=== PATIENT | male | born 1960 | race Caucasian/White ===

== ENCOUNTER 2016-12-09 12:51 | Emergency (ER) | payer OTHER ==
[~2016-12-09] VITALS: Ht 193 cm; Wt 150.0 kg
[~2016-12-09 12:51] MED LIST: AMOX875T PO; ASPI1TAB69 PO; BUPR100T4 PO; DEXT10CA6 PO; MORP1TAB24 PO; SERT-129 PO; TRAZ100T4 PO
[2016-12-09 12:53] VITALS: BP 169/102; PULSE 101; RESP 26; TEMP 98.7; O2SAT 96
[2016-12-09] MEDS ORDERED: IBUP200T2 PO (16:54)
[2016-12-09] MEDS ORDERED: BACL10TA PO (16:54)
[2016-12-09] MEDS ORDERED: ACET-898 (16:54)
[2016-12-09] MEDS ORDERED: AMIT10TA6 PO (16:54)
[2016-12-09 16:55] VITALS: BP 162/101; PULSE 82; RESP 20; TEMP 98.1; O2SAT 97
[2016-12-09] MEDS ORDERED: METF500T PO (17:00)
--- NOTE | 2016-12-09 17:12 | PD ---
HPI Chief Complaint: Respiratory Symptoms Time Seen by Provider: 17:02 Travel History International Travel<30 days: No Contact w/Intl Traveler<30days: No Traveled to known affect area: No History of Present Illness HPI 56 years old male complains of coughing wheezing shortness of breath. Patient states that the symptoms started a month ago and it was since then. Patient denies any fever chills. Patient states that he has intermittent burning pain substernally with breathing and movement. Patient denies any pain radiation. Patient denies palpitation nausea or diaphoresis. Patient has history of reactive airway disease in the past. Patient was given inhaler in the past. Patient states that he quit smoking years ago. Patient has history of diabetes , anxiety, depression, CAD status post AK in the past. Patient denies any history hypertension or hyperlipidemia. Patient has been taking metformin for his diabetes. PFSH Past Medical History ADHD: Yes Anxiety: Yes Depression: Yes Cardiovascular Problems: Yes Diabetes: Yes Patient Takes Glucophage: Yes Hypertension: Yes Musculoskeletal: Yes (heart) Myocardial Infarction: Yes Tetanus Vaccination: Unknown Influenza Vaccination: No Past Surgical History Other Surgery: Yes (lumbar discectomy) Social History Alcohol Use: No Tobacco Use: No Substance Use: No Allergies-Medications (Allergen,Severity, Reaction): Coded Allergies: No Known Allergies (Unverified , 12/09/16) Reported Meds & Prescriptions Reported Meds & Active Scripts Active Reported Metformin (Metformin HCl) 500 Mg Tab 500 Mg PO BIDPC Amitriptyline (Amitriptyline HCl) 10 Mg Tab 10 Mg PO HS Baclofen 10 Mg Tab 10 Mg PO BID Acetaminophen Extra Strength (Acetaminophen) 500 Mg Tablet Ibuprofen 200 Mg Tab 200 Mg PO Q12HR PRN Sertraline (Sertraline HCl) 100 Mg Tab 100 Mg PO DAILY Dextroamphetamine (Dextroamphetamine Sulfate) 10 Mg Cap 10 Mg PO Q6HR Bupropion HCl 100 Mg Tab 100 Mg PO DAILY Review of Systems General / Constitutional: No: Fever Eyes: No: Visual changes HENT: No: Headaches Cardiovascular: Positive: Chest Pain or Discomfort Respiratory: Positive: Cough, Shortness of Breath, Wheezing Gastrointestinal: No: Abdominal Pain Genitourinary: No: Dysuria Musculoskeletal: No: Pain Skin: No Rash Neurologic: No: Weakness Psychiatric: No: Depression Endocrine: No: Polydipsia Hematologic/Lymphatic: No: Easy Bruising Physical Exam Narrative GENERAL: Well-nourished, well-developed patient. SKIN: Focused skin assessment warm/dry. HEAD: Normocephalic. EYES: No scleral icterus. No injection or drainage. NECK: Supple, trachea midline. No JVD or lymphadenopathy. CARDIOVASCULAR: Regular rate and rhythm without murmurs, gallops, or rubs. RESPIRATORY: Breath sounds equal bilaterally. No accessory muscle use. Patient has mild titrate wheezes bilaterally. No rhonchi. GASTROINTESTINAL: Abdomen soft, non-tender, nondistended. MUSCULOSKELETAL: No cyanosis, or edema. BACK: Nontender without obvious deformity. No CVA tenderness. Neurologic exam normal. Data Data Last Documented VS Vital Signs Date Time Temp Pulse Resp B/P (MAP) Pulse Ox O2 Delivery O2 Flow Rate FiO2 12/09/16 16:55 82 20 97 Room Air 12/09/16 16:55 98.1 162/101 (121) Orders Orders Complete Blood Count With Diff (12/09/16 17:07) Basic Metabolic Panel (Bmp) (12/09/16 17:07) B-Type Natriuretic Peptide (12/09/16 17:07) Troponin I (12/09/16 17:07) Iv Access Insert/Monitor (12/09/16 17:07) Electrocardiogram (12/09/16 17:07) Ecg Monitoring (12/09/16 17:07) Oximetry (12/09/16 17:07) Chest, Single Ap (12/09/16 17:07) Sodium Chloride 0.9% Flush (Ns Flush) (12/09/16 17:15) Methylprednisolone So Succ Inj (Solumedr (12/09/16 17:15) Albuterol-Ipratropium Neb (Duoneb Neb) (12/09/16 17:15) Ed Discharge Order (12/09/16 18:57) Labs Laboratory Tests Test 12/09/16 17:25 White Blood Count 6.4 TH/MM3 Red Blood Count 4.91 MIL/MM3 Hemoglobin 13.3 GM/DL Hematocrit 39.8 % Mean Corpuscular Volume 81.0 FL Mean Corpuscular Hemoglobin 27.1 PG Mean Corpuscular Hemoglobin Concent 33.5 % Red Cell Distribution Width 14.5 % Platelet Count 149 TH/MM3 Mean Platelet Volume 10.6 FL Neutrophils (%) (Auto) 58.9 % Lymphocytes (%) (Auto) 31.9 % Monocytes (%) (Auto) 5.7 % Eosinophils (%) (Auto) 2.5 % Basophils (%) (Auto) 1.0 % Neutrophils # (Auto) 3.8 TH/MM3 Lymphocytes # (Auto) 2.0 TH/MM3 Monocytes # (Auto) 0.4 TH/MM3 Eosinophils # (Auto) 0.2 TH/MM3 Basophils # (Auto) 0.1 TH/MM3 CBC Comment DIFF FINAL Differential Comment Blood Urea Nitrogen 13 MG/DL Creatinine 0.93 MG/DL Random Glucose 106 MG/DL Calcium Level 8.7 MG/DL Sodium Level 141 MEQ/L Potassium Level 3.8 MEQ/L Chloride Level 108 MEQ/L Carbon Dioxide Level 26.6 MEQ/L Anion Gap 6 MEQ/L Estimat Glomerular Filtration Rate 84 ML/MIN Troponin I LESS THAN 0.02 NG/ML B-Type Natriuretic Peptide 202 PG/ML MDM Medical Decision Making Medical Screen Exam Complete: Yes Emergency Medical Condition: Yes Interpretation(s) Last Impressions Chest X-Ray 12/09/16 1706 Signed Impressions: Service Date/Time: Friday, December 09, 2016 17:33 - CONCLUSION: No acute disease. Carlos Enrique Horan Jr., MD 1851 PM. CBC within normal limit. BMP within normal limit. Cardiac enzymes are normal. BNP 202. Differential Diagnosis Differential diagnosis including reactive airway disease, bronchitis, pneumonia , PE, pneumothorax. Narrative Course 56-year-old male with coughing wheezing shortness of breath for 1 month. History of reactive airway disease. Albuterol with Atrovent unit dose treatment 1. Solu-Medrol 60 mg IV. Diagnosis Primary Impression: Reactive airway disease Qualified Codes: J45.41 - Moderate persistent asthma with (acute) exacerbation Additional Impression: Atypical chest pain Patient Instructions: General Instructions Additional Instructions: Albuterol inhaler as needed. Prednisone as directed. Check blood sugar while on prednisone. Follow-up with personal physician. Return if persistent problem worse. Return immediately if increasing chest pain shortness of breath. Med/Other Pt SpecificInfo: Prescription(s) given Scripts Ranitidine (Zantac) 300 Mg Tab 300 MG PO DAILY, #20 TAB 0 Refills Prov: Johnny Tapia MD 12/09/16 Ibuprofen (Ibuprofen) 600 Mg Tab 600 MG PO TID for Pain, #30 TAB 0 Refills Prov: Johnny Tapia MD 12/09/16 Prednisone (Prednisone) 20 Mg Tab 20 MG PO DAILY, #7 TAB 0 Refills Prov: Johnny Tapia MD 12/09/16 Albuterol 18 GM Inh (Ventolin Hfa 18 GM Inh) 90 Mcg/Act Aer 2 PUFF INH Q4-6H Y for SHORTNESS OF BREATH, #1 INHALER 0 Refills Prov: Johnny Tapia MD 12/09/16 Disposition: 01 DISCHARGE HOME Condition: Stable Johnny Tapia MD Dec 09, 2016 17:12
[2016-12-09] MEDS ORDERED: SODIUM CHLORIDE 0.9% FLUSH 10 ML FLUSH IVF PRN (17:15)
[2016-12-09] MEDS ORDERED: methylPREDNISolone SOD SUCC 125 MG/2 ML VIAL IV PUSH ONE (17:15)
[2016-12-09] MEDS ORDERED: RESP: ALBUTEROL 2.5 MG/IPRATROPIUM 0.5 MG NEB (SCH) INH ONE (17:15)
--- NOTE | 2016-12-09 17:41 | RADRPT ---
EXAM DATE/TIME: 12/09/2016 17:33 [facility] COMPARISON: CHEST SINGLE AP, February 20, 2016, 17:18. INDICATIONS : Short of breath. MEDICAL HISTORY : Cardiovascular disease. Diabetes mellitus type 2. SURGICAL HISTORY : None. ENCOUNTER: Initial ACUITY: 1 day PAIN SCORE: 0/10 LOCATION: Bilateral chest FINDINGS: A single view of the chest demonstrates the lungs to be symmetrically aerated without evidence of mas s, infiltrate or effusion. The cardiomediastinal contours are unremarkable. Osseous structures are intact. CONCLUSION: No acute disease. Carlos Enrique Horan Jr., MD on December 09, 2016 at 17:36 Board Certified Radiologist. This report was verified electronically.
[2016-12-09 18:01] LABS: AUTOMATED NEUTROPHIL # 3.8 TH/MM3 (1.8-7.7); BASOPHIL # 0.1 TH/MM3 (0-0.2); EOSINOPHIL # 0.2 TH/MM3 (0-0.4); EOSINOPHIL % 2.5 % (0.0-4.0); HEMATOCRIT 39.8 % (39.0-51.0); HEMO FLAGS DIFF FINAL; LYMPH % 31.9 % (9.0-44.0); MEAN CORPUSCULAR HEMOGLOBIN 27.1 PG (27.0-34.0); MEAN CORPUSCULAR HGB CONC 33.5 % (32.0-36.0); MONO % 5.7 % (0.0-8.0); NEUT % 58.9 % (16.0-70.0); PLATELET COUNT 149 TH/MM3 (150-450); RED BLOOD COUNT 4.91 MIL/MM3 (4.50-5.90); RED CELL DISTRIBUTION WIDTH 14.5 % (11.6-17.2); WHITE BLOOD COUNT 6.4 TH/MM3 (4.0-11.0)
[2016-12-09 18:24] LABS: ANION GAP 6 MEQ/L (5-15); BICARBONATE 26.6 MEQ/L (21.0-32.0); BLOOD UREA NITROGEN 13 MG/DL (7-18); CHLORIDE 108 MEQ/L (98-107); GLOMERULAR FILTRATION RATE 84 ML/MIN (>89); POTASSIUM 3.8 MEQ/L (3.5-5.1); SODIUM (NA) 141 MEQ/L (136-145)
[2016-12-09] MEDS ORDERED: PRED20 PO (19:01)
[2016-12-09] MEDS ORDERED: VENTAER INH (19:01)
[2016-12-09] MEDS ORDERED: ZANT300T PO (19:02)
[2016-12-09] MEDS ORDERED: IBUP-232 PO (19:02)
[2016-12-09 19:13] VITALS: BP 139/75
--- NOTE | 2016-12-11 07:38 | EKG ---
Date Performed: 12/09/2016 Time Performed: 17:19:18 PTAGE: 56 years EKG: Sinus rhythm MARKED LEFT AXIS DEVIATION POSSIBLE RIGHT VENTRICULAR CONDUCTION DELAY MODERATE VOLTAGE CRITERIA FOR LVH, CONSIDER NORMAL VARIANT ABNORMAL ECG Compared to prior tracing no significant change PREVIOUS TRACING : 02/20/2016 12.18 DOCTOR: Ramsey Sena Interpretating Date/Time 12/11/2016 07:36:35
== END 2016-12-09 19:14 | disposition home or self-care (01) ==
LOC: NEPD 12:51
DX: J45.41 Moderate persistent asthma with (acute) exacerbation (principal); R07.89 Other chest pain; R06.02 Shortness of breath; R94.31 Abnormal electrocardiogram [ECG] [EKG]; E11.9 Type 2 diabetes mellitus without complications; I10 Essential (primary) hypertension; I25.2 Old myocardial infarction; Z79.84 Long term (current) use of oral hypoglycemic drugs; Z86.59 Personal history of other mental and behavioral disorders; Z86.79 Personal history of other diseases of the circulatory system
CPT/HCPCS: 71010; 80048; 83880; 84484; 85025; 93005; 94664; 96374; 99285; J2930

== ENCOUNTER 2017-07-24 12:26 | Day surgery (SDC) | payer OTHER ==
[~2017-07-24 12:26] MED LIST changes: +ACET-898; +AMIT10TA6 PO; -AMOX875T PO; -ASPI1TAB69 PO; +BACL10TA PO; +IBUP-232 PO; +IBUP200T47 PO; +METF500T PO; -MORP1TAB24 PO; +PRED20 PO; -TRAZ100T4 PO; +VENTAER INH; +ZANT300T PO
[2017-07-24 12:50] VITALS: BP 148/86; PULSE 84; RESP 18; TEMP 99.3; O2SAT 96
[2017-07-24 14:05] VITALS: BP 152/94; PULSE 84; RESP 18; TEMP 98.3; O2SAT 98
[2017-07-24 14:20] VITALS: BP 161/91; PULSE 82; RESP 18; O2SAT 98
[2017-07-24 14:35] VITALS: BP 149/88; PULSE 78; RESP 18; O2SAT 98
[2017-07-24] MEDS ORDERED: LIDOCAINE HCL 1% PF 30 ML VIAL ONE (14:47)
--- NOTE | 2017-07-24 16:23 | RADRPT ---
EXAM DATE: 07/24/2017 3:54 PM EDT AGE/SEX: 57 years / Male INDICATIONS: Right parotid mass. CLINICAL DATA: This is the patient's initial encounter. Patient reports that signs and symptoms have been present for > 1 year and indicates a pain score of 0/10. MEDICAL/SURGICAL HISTORY: Hypertension. Diabetes. Right parotid mass. Asthma. Heart attack. . Lumbar discectomy. COMPARISON: No prior [facility] exams available for comparison. [facility], CT SOFT TISSUE NECK W AND W/O CONTRAST. [facility], 03/18/17, US SOFT TISSUE NECK. 2017-06-16 ORGAN: Right NECK. SPECIMEN(S): Two core specimen(s) submitted for pathologic evaluation. DEVICE(S): 18 gauge Temno needle Post procedure scanning reveals no hematoma or other complication. The possibility does exist that the tissue obtained will be non-diagnostic. If the sample is non-diag nostic, a repeat biopsy or surgical biopsy may need to be performed. TECHNIQUE: 1. Ultrasound guidance for needle biopsy. 2. Needle biopsy. 3. 4. . . The risks, benefits and alternatives to the procedure were explained and verbal and written consent w as obtained. The site was prepped in sterile fashion. Full sterile technique was used, including ca p, mask, sterile gloves and gown and a large sterile sheet. Hand hygiene and 2% chlorhexidine and/or betadine/alcohol prep was utilized per protocol for cutaneous antisepsis. The skin and subcutaneous tissues were infiltrated with local anesthetic solution. Sterile gel and sterile probe cover were u tilized for ultrasound guidance. With the patient on the ultrasound table, images were obtained. A needle was advanced into the identified target and the number of specimens as above obtained and purcell bmitted for pathologic evaluation. The patient tolerated the procedure well and left the ultrasound suite in stable condition. FINDINGS: 2 samples obtained of the right parotid lesion. CONCLUSION: 1. Successful biopsy of right parotid mass. Electronically signed by: Domingo Singh MD 07/24/2017 4:22 PM EDT
== END 2017-07-24 14:40 | disposition home or self-care (01) ==
LOC: HRAD 12:26
PROVIDERS: ATTEND Family Medicine
DX: D11.0 Benign neoplasm of parotid gland (principal); I10 Essential (primary) hypertension; E11.9 Type 2 diabetes mellitus without complications; I25.2 Old myocardial infarction; J45.909 Unspecified asthma, uncomplicated
CPT/HCPCS: 42400; 76942; 88305; 88307